=== PATIENT | male | born 1940 | race Caucasian/White ===

== ENCOUNTER 2020-12-19 15:25 | Emergency (ER) | payer MEDICARE, OTHER ==
[2020-12-19] MEDS ORDERED: diphenhydrAMINE 50 MG Cap PO ONE (15:28)
[2020-12-19] MEDS ORDERED: Acetaminophen 325 MG Tab PO ONE ×2 (15:29→16:22)
[2020-12-19] MEDS ORDERED: Sodium Chloride 0.9% 10 ML Syringe FLUSH PRN (15:41)
[2020-12-19] MEDS ORDERED: Ondansetron 4 MG/2 ML SDV IVPUSH ONE (15:41)
[2020-12-19] MEDS ORDERED: diphenhydrAMINE 50 MG/ML SDV IVPUSH ONE (15:41)
--- NOTE | 2020-12-19 15:44 | EDM.PDOC ---
ED HPI GENERAL MEDICAL PROBLEM - General Stated Complaint: VOMITTING,CHILLS Time Seen by Provider: 12/19/20 15:30 Source of Information: Reports: Patient History Limitations: Reports: No Limitations - History of Present Illness INITIAL COMMENTS - FREE TEXT/NARRATIVE: This patient presents to the emergency department for evaluation of chills and vomiting. He was treated as an outpatient in this facility earlier today, and given a dose of Octagam. 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 He did fine with the transfusion and there were no red flags of intolerance. He was discharged approximately 12 noon. Shortly after that he started having shaking chills, nausea, and has had 1 episode of vomiting. He did return fairly quickly with these concerns. ED ROS GENERAL - Review of Systems Review Of Systems: Comprehensive ROS is negative, except as noted in HPI. ED EXAM, GENERAL - Physical Exam Exam: See Below Exam Limited By: No Limitations General Appearance: Alert, No Apparent Distress Eye Exam: Bilateral Eye: Normal Inspection, PERRL Ears: Normal External Exam Nose: Normal Inspection Throat/Mouth: Normal Inspection Head: Atraumatic, Normocephalic Respiratory/Chest: No Respiratory Distress, Lungs Clear, Normal Breath Sounds, No Accessory Muscle Use Cardiovascular: Regular Rate, Rhythm GI/Abdominal: Soft, Non-Tender, No Distention Neurological: Alert, Oriented Psychiatric: Normal Affect Skin Exam: Warm, Dry Course - Orders/Labs/Meds Orders: Active Orders 24 hr Category Date Time Status Sodium Chloride 0.9% [Normal Saline] 1,000 ml Med 12/19/20 15:45 Active IV ASDIRECTED Sodium Chloride 0.9% [Saline Flush] Med 12/19/20 15:41 Active 10 ml FLUSH ASDIRECTED PRN Saline Lock Insert [OM.PC] Stat Oth 12/19/20 15:41 Ordered Medication Orders Sodium Chloride (Normal Saline) 1,000 mls @ 1,000 mls/hr IV ASDIRECTED DELFINO Last Admin: 12/19/20 15:43 Dose: 1,000 mls/hr Documented by: KVNG Sodium Chloride (Sodium Chloride 0.9% 10 Ml Syringe) 10 ml FLUSH ASDIRECTED PRN PRN Reason: Keep Vein Open Last Admin: 12/19/20 16:24 Dose: 10 ml Documented by: KVNG Meds: Medications Generic Name Dose Route Start Last Admin Trade Name Freq PRN Reason Stop Dose Admin Sodium Chloride 1,000 mls @ 1,000 mls/hr 12/19/20 15:45 12/19/20 15:43 Normal Saline IV 1,000 mls/hr ASDIRECTED DELFINO Administration Sodium Chloride 10 ml 12/19/20 15:41 12/19/20 16:24 Sodium Chloride 0.9% 10 Ml Syringe FLUSH 10 ml ASDIRECTED PRN Administration Keep Vein Open Discontinued Medications Generic Name Dose Route Start Last Admin Trade Name Homero PRN Reason Stop Dose Admin Acetaminophen 650 mg 12/19/20 15:29 12/19/20 16:42 Acetaminophen 325 Mg Tab PO 12/19/20 15:30 Not Given NOW ONE Acetaminophen Confirm 12/19/20 15:53 12/19/20 16:24 Acetaminophen 325 Mg Tab Administered 12/19/20 15:54 Not Given Dose 650 mg .ROUTE .STK-MED ONE Acetaminophen 650 mg 12/19/20 16:22 12/19/20 16:23 Acetaminophen 325 Mg Tab PO 12/19/20 16:23 650 mg NOW ONE Administration Diphenhydramine HCl 50 mg 12/19/20 15:28 12/19/20 16:30 Diphenhydramine 50 Mg Cap PO 12/19/20 15:29 Not Given ONETIME ONE Diphenhydramine HCl 50 mg 12/19/20 15:41 12/19/20 15:43 Diphenhydramine 50 Mg/Ml Sdv IVPUSH 12/19/20 15:42 50 mg ONETIME ONE Administration Diphenhydramine HCl Confirm 12/19/20 15:52 12/19/20 16:14 Diphenhydramine 50 Mg/Ml Sdv Administered 12/19/20 15:53 Not Given Dose 50 mg .ROUTE .STK-MED ONE Diphenhydramine HCl 50 mg 12/19/20 16:21 12/19/20 16:41 Diphenhydramine 50 Mg/Ml Sdv IVPUSH 12/19/20 16:22 Not Given ONETIME ONE Ondansetron HCl 4 mg 12/19/20 15:41 12/19/20 15:43 Ondansetron 4 Mg/2 Ml Sdv IVPUSH 12/19/20 15:42 4 mg ONETIME ONE Administration Ondansetron HCl Confirm 12/19/20 15:52 12/19/20 16:25 Ondansetron 4 Mg/2 Ml Sdv Administered 12/19/20 15:53 Not Given Dose 4 mg .ROUTE .STK-MED ONE Ondansetron HCl 4 mg 12/19/20 16:15 12/19/20 16:29 Ondansetron 4 Mg/2 Ml Sdv IVPUSH 12/19/20 16:16 Not Given ONETIME ONE Departure - Departure Time of Disposition: 17:20 Disposition: Home, Self-Care 01 Condition: Good Clinical Impression: Drug reaction - Discharge Information *PRESCRIPTION DRUG MONITORING PROGRAM REVIEWED*: Not Applicable *COPY OF PRESCRIPTION DRUG MONITORING REPORT IN PATIENT KENJI: Not Applicable Referrals: PCP,None [Primary Care Provider] - Additional Instructions: Follow up with Dr. Cho's office. Return to the ED if you have further problems. - My Orders Last 24 Hours: My Active Orders 12/19/20 15:41 Sodium Chloride 0.9% [Saline Flush] 10 ml FLUSH ASDIRECTED PRN Saline Lock Insert [OM.PC] Stat 12/19/20 15:45 Sodium Chloride 0.9% [Normal Saline] 1,000 ml IV ASDIRECTED - Assessment/Plan Last 24 Hours: My Active Orders 12/19/20 15:41 Sodium Chloride 0.9% [Saline Flush] 10 ml FLUSH ASDIRECTED PRN Saline Lock Insert [OM.PC] Stat 12/19/20 15:45 Sodium Chloride 0.9% [Normal Saline] 1,000 ml IV ASDIRECTED
[2020-12-19] MEDS ORDERED: Sodium Chloride 0.9% 1,000 ML IV SCH (15:45)
[2020-12-19] MEDS ORDERED: diphenhydrAMINE 50 MG/ML SDV ONE (15:52)
[2020-12-19] MEDS ORDERED: Ondansetron 4 MG/2 ML SDV ONE (15:52)
[2020-12-19] MEDS ORDERED: Acetaminophen 325 MG Tab ONE (15:53)
[2020-12-19] MEDS: Ondansetron 4 MG/2 ML SDV IVPUSH ONE ×2 (16:22→16:29)
[2020-12-19] MEDS: diphenhydrAMINE 50 MG/ML SDV IVPUSH ONE ×2 (16:22→16:41)
== END 2020-12-19 17:10 | disposition home or self-care (01) ==
LOC: LB.ED 15:25
DX: R11.2 Nausea with vomiting, unspecified (principal); T50.995A Adverse effect of other drugs, medicaments and biological substances, initial encounter
CPT/HCPCS: 96374; 96375; 99282-25; A9270-GY; J1200; J2405; J7030

== ENCOUNTER 2021-04-24 07:31 | Emergency (ER) | payer MEDICARE, OTHER | END 2021-04-24 11:35 | disposition home or self-care (01) | LOC: LB.ED 07:31 | DX: B34.9 Viral infection, unspecified (principal); Z20.822 Contact with and (suspected) exposure to COVID-19; Z88.1 Allergy status to other antibiotic agents; Z79.899 Other long term (current) drug therapy | CPT/HCPCS: 36415; 71046; 80048; 84484; 85025; 87804; 87804-59; 99284-25; U0002 ==

== ENCOUNTER 2022-12-16 12:36 | Emergency (ER) | payer MEDICARE, BC ==
[2022-12-16 15:06] LABS: INFLUENZA A NAA NEGATIVE (NEGATIVE); INFLUENZA B NAA NEGATIVE (NEGATIVE); RESPIRATORY SYNCYTIAL VIR NAA NEGATIVE (NEGATIVE)
[2022-12-16 15:09] LABS: CORONAVIRUS COVID-19 NAA NEGATIVE (NEGATIVE)
[2022-12-16 15:32] LABS: HEMATOCRIT 42.4 % (40.0-54.0); MEAN CORPUSCULAR HEMOGLOBIN 30.1 pg (27.0-32.0); MEAN PLATELET VOLUME 9.1 fL (6.0-10.0); RED BLOOD CELL COUNT 4.65 M/uL (4.50-6.50); RED CELL DISTRIBUTION WIDTH 13.6 % (11.0-16.0); WHITE BLOOD CELL COUNT,WBC 7.2 K/uL (4.0-11.0)
[2022-12-16 15:34] LABS: APPEARANCE,URINE CLEAR (CLEAR); BILIRUBIN,URINE NEGATIVE (NEGATIVE); COLOR,URINE YELLOW; GLUCOSE,URINE NEGATIVE (NEGATIVE); KETONES,URINE NEGATIVE (NEGATIVE); LEUKOCYTE ESTERASE,URINE NEGATIVE (NEGATIVE); NITRITE,URINE NEGATIVE (NEGATIVE); OCCULT BLOOD,URINE NEGATIVE (NEGATIVE); PH,URINE 5.5 (5.0-8.0); PROTEIN,URINE NEGATIVE (NEGATIVE); UROBILINOGEN,URINE 0.2 E.U./dL (0.2-1.0)
[2022-12-16 15:46] LABS: ANION GAP 13.9 mmol/L (5.0-15.0); BLOOD UREA NITROGEN,BUN 21 mg/dL (8-26); BUN/CREATININE RATIO 16.3 (6-25); CALCIUM 8.9 mg/dL (8.5-10.1); CARBON DIOXIDE,CO2 25.3 mmol/L (21.0-32.0); CHLORIDE,CL 102 mmol/L (98-107); CREATININE 1.29 mg/dL (0.70-1.30); ESTIMATED GFR 55 mL/min (>60); GLUCOSE RANDOM 109 mg/dL (74-100); POTASSIUM,K 4.2 mmol/L (3.5-5.1); SODIUM,NA 137 mmol/L (136-145)
[2022-12-16] MEDS ORDERED: Amoxicillin/Clavulanate K 875-125 MG Tab ONE (16:00)
[2022-12-16 20:10] VITALS: BP 122/68; PULSE 90
== END 2022-12-16 16:20 | disposition home or self-care (01) ==
LOC: LB.ED 12:36
DX: K08.89 Other specified disorders of teeth and supporting structures (principal); I10 Essential (primary) hypertension; Z88.8 Allergy status to other drugs, medicaments and biological substances; Z88.2 Allergy status to sulfonamides; Z79.899 Other long term (current) drug therapy; Z20.822 Contact with and (suspected) exposure to COVID-19
CPT/HCPCS: 0241U; 36415; 80048; 81003; 85027; 99283; A9270-GY

== ENCOUNTER 2022-12-18 09:08 | Emergency (ER) | payer MEDICARE, BC ==
[2022-12-18] MEDS ORDERED: Sodium Chloride 0.9% 10 ML Syringe FLUSH PRN (09:37)
[2022-12-18] MEDS ORDERED: Sodium Chloride 0.9% 1,000 ML IV SCH (09:45)
[2022-12-18 10:07] LABS: BASOPHILS ABSOLUTE AUTO 0.04 K/uL (0.02-0.10); BASOPHILS PERCENT AUTO 0.5 % (0.0-0.5); EOSINOPHILS ABSOLUTE AUTO 0.01 K/uL (0.04-0.40); EOSINOPHILS PERCENT AUTO 0.1 % (1.0-5.0); HEMATOCRIT 39.2 % (40.0-54.0); HEMOGLOBIN 13.2 g/dL (13.0-18.0); LYMPHOCYTES ABSOLUTE AUTO 1.13 K/uL (1.50-4.00); LYMPHOCYTES PERCENT AUTO 13.6 % (20.0-40.0); MEAN CORPUSCULAR HEMOGLOBIN 30.3 pg (27.0-32.0); MEAN CORPUSCULAR HGB CONC 33.7 g/dL (31.0-35.0); MEAN CORPUSCULAR VOLUME 90 fL (76-96); MEAN PLATELET VOLUME 9.9 fL (6.0-10.0); MONOCYTES ABSOLUTE AUTO 0.59 K/uL (0.20-0.80); MONOCYTES PERCENT AUTO 7.1 % (3.0-10.0); NEUTROPHILS ABSOLUTE AUTO 6.56 K/uL (2.00-7.50); NEUTROPHILS PERCENT AUTO 78.7 % (45.0-70.0); PLATELET COUNT,PLT 176 K/uL (150-400); RED BLOOD CELL COUNT 4.35 M/uL (4.50-6.50); RED CELL DISTRIBUTION WIDTH 13.2 % (11.0-16.0); WHITE BLOOD CELL COUNT,WBC 8.3 K/uL (4.0-11.0)
[2022-12-18 10:19] LABS: A/G RATIO 1.1 (0.8-2.0); ALBUMIN 3.6 g/dL (3.4-5.0); ANION GAP 15.7 mmol/L (5.0-15.0); CALCIUM 8.5 mg/dL (8.5-10.1); CARBON DIOXIDE,CO2 22.6 mmol/L (21.0-32.0); CREATININE 1.54 mg/dL (0.70-1.30); EST CRCL DRUG DOSING (CG) 37.53 mL/min; POTASSIUM,K 4.3 mmol/L (3.5-5.1); PROTEIN TOTAL,TP 6.9 g/dL (6.4-8.2)
[2022-12-18 12:46] LABS: APPEARANCE,URINE CLEAR (CLEAR); BILIRUBIN,URINE NEGATIVE (NEGATIVE); COLOR,URINE YELLOW; GLUCOSE,URINE NEGATIVE (NEGATIVE); KETONES,URINE TRACE mg/dL (NEGATIVE); LEUKOCYTE ESTERASE,URINE NEGATIVE (NEGATIVE); NITRITE,URINE NEGATIVE (NEGATIVE); OCCULT BLOOD,URINE NEGATIVE (NEGATIVE); PH,URINE 6.5 (5.0-8.0); PROTEIN,URINE NEGATIVE (NEGATIVE); UROBILINOGEN,URINE 0.2 E.U./dL (0.2-1.0)
[2022-12-18] MEDS ORDERED: Prochlorperazine 5 MG in Sodium Chloride 0.9% 50 ML IV ONE (13:38)
[2022-12-18] MEDS ORDERED: diphenhydrAMINE 50 MG/ML SDV IVPUSH ONE (13:38)
[2022-12-18] MEDS ORDERED: diphenhydrAMINE 50 MG/ML SDV ONE (13:43)
[2022-12-18] MEDS ORDERED: Prochlorperazine 10 MG/2 ML SDV ONE (13:55)
[2022-12-18] MEDS ORDERED: Prochlorperazine 10 MG/2 ML SDV IM ONE (13:56)
[2022-12-18] MEDS ORDERED: Ketorolac 30 MG/ML SDV ONE (15:42)
[2022-12-18] MEDS ORDERED: Azithromycin 500 MG Tab PO ONE (16:00)
== END 2022-12-18 17:32 | disposition home or self-care (01) ==
LOC: LB.ED 09:08
DX: J18.9 Pneumonia, unspecified organism (principal); I71.00 Dissection of unspecified site of aorta; I10 Essential (primary) hypertension; J45.909 Unspecified asthma, uncomplicated; Z95.0 Presence of cardiac pacemaker; Z88.1 Allergy status to other antibiotic agents; Z88.8 Allergy status to other drugs, medicaments and biological substances
CPT/HCPCS: 36415; 71045; 71250; 74176; 80053; 81003; 83735; 85025; 96361; 96374; 99285-25; A9270-GY; J1200; J7030

== ENCOUNTER 2022-12-19 11:05 | Inpatient (IN) | payer MEDICARE, BC ==
[2022-12-19] MEDS ORDERED: Sodium Chloride 0.9% 10 ML Syringe FLUSH PRN (12:20)
[2022-12-19] MEDS ORDERED: cefTRIAXone 1 GM in Sodium Chloride 0.9% 50 ML IV ONE (12:22)
[2022-12-19] MEDS ORDERED: Sodium Chloride 0.9% 1,000 ML IV SCH (12:30)
[2022-12-19 12:46] LABS: BASOPHILS ABSOLUTE AUTO 0.03 K/uL (0.02-0.10); BASOPHILS PERCENT AUTO 0.4 % (0.0-0.5); EOSINOPHILS ABSOLUTE AUTO 0.06 K/uL (0.04-0.40); EOSINOPHILS PERCENT AUTO 0.7 % (1.0-5.0); HEMATOCRIT 38.7 % (40.0-54.0); LYMPHOCYTES ABSOLUTE AUTO 1.16 K/uL (1.50-4.00); LYMPHOCYTES PERCENT AUTO 13.8 % (20.0-40.0); MEAN CORPUSCULAR HEMOGLOBIN 30.4 pg (27.0-32.0); MEAN CORPUSCULAR HGB CONC 33.6 g/dL (31.0-35.0); MEAN CORPUSCULAR VOLUME 90 fL (76-96); MEAN PLATELET VOLUME 10.1 fL (6.0-10.0); MONOCYTES ABSOLUTE AUTO 0.71 K/uL (0.20-0.80); MONOCYTES PERCENT AUTO 8.5 % (3.0-10.0); NEUTROPHILS ABSOLUTE AUTO 6.42 K/uL (2.00-7.50); NEUTROPHILS PERCENT AUTO 76.6 % (45.0-70.0); PLATELET COUNT,PLT 161 K/uL (150-400); RED BLOOD CELL COUNT 4.28 M/uL (4.50-6.50); RED CELL DISTRIBUTION WIDTH 13.3 % (11.0-16.0); WHITE BLOOD CELL COUNT,WBC 8.4 K/uL (4.0-11.0)
[2022-12-19] MEDS ORDERED: cefTRIAXone 1 GM Vial ONE ×2 (12:46→12:53)
[2022-12-19 13:17] LABS: ALBUMIN 3.4 g/dL (3.4-5.0); BILIRUBIN TOTAL 0.6 mg/dL (0.0-1.0); BUN/CREATININE RATIO 13.7 (6-25); CALCIUM 8.5 mg/dL (8.5-10.1); CREATININE 1.46 mg/dL (0.70-1.30); EST CRCL DRUG DOSING (CG) 39.58 mL/min; PHOSPHORUS 4.1 mg/dL (2.5-4.9); PROTEIN TOTAL,TP 6.7 g/dL (6.4-8.2); TROPONIN I HIGH SENSITIVITY 32.8 pg/ml (<=60.4)
[2022-12-19] MEDS: Sodium Chloride 0.9% 1,000 ML IV SCH (16:05)
[2022-12-19 16:11] LABS: APPEARANCE,URINE CLEAR (CLEAR); BILIRUBIN,URINE NEGATIVE (NEGATIVE); COLOR,URINE YELLOW; GLUCOSE,URINE NEGATIVE (NEGATIVE); KETONES,URINE NEGATIVE (NEGATIVE); LEUKOCYTE ESTERASE,URINE NEGATIVE (NEGATIVE); NITRITE,URINE NEGATIVE (NEGATIVE); OCCULT BLOOD,URINE NEGATIVE (NEGATIVE); PROTEIN,URINE NEGATIVE (NEGATIVE); UROBILINOGEN,URINE 0.2 E.U./dL (0.2-1.0)
[2022-12-19] MEDS ORDERED: Acetaminophen 325 MG Tab ONE (20:40)
[2022-12-19] MEDS: Acetaminophen 325 MG Tab PO PRN (20:45)
[2022-12-20] MEDS: Sodium Chloride 0.9% 1,000 ML IV SCH ×3 (00:52→17:30)
[2022-12-20] MEDS: Acetaminophen 325 MG Tab PO PRN (05:08)
[2022-12-20] MEDS ORDERED: Hydrochlorothiazide/Triamterene 25-37.5 MG Cap PO SCH (09:15)
[2022-12-20] MEDS ORDERED: cefTRIAXone 1 GM Vial IVPUSH SCH (09:30)
[2022-12-20 09:35] LABS: HEMATOCRIT 41.2 % (40.0-54.0); HEMOGLOBIN 13.5 g/dL (13.0-18.0); MEAN CORPUSCULAR HGB CONC 32.8 g/dL (31.0-35.0); MEAN PLATELET VOLUME 9.9 fL (6.0-10.0); RED BLOOD CELL COUNT 4.5 M/uL (4.50-6.50); RED CELL DISTRIBUTION WIDTH 13.4 % (11.0-16.0); WHITE BLOOD CELL COUNT,WBC 9.8 K/uL (4.0-11.0)
[2022-12-20] MEDS: cefTRIAXone 1 GM in Sodium Chloride 0.9% 50 ML IV SCH (10:28)
[2022-12-20] MEDS: Tamsulosin 0.4 MG Cap.ER PO SCH (10:28)
[2022-12-20] MEDS: amLODIPine 5 MG Tab PO SCH (10:32)
[2022-12-20 11:24] LABS: ANION GAP 15.6 mmol/L (5.0-15.0); BUN/CREATININE RATIO 12.6 (6-25); CALCIUM 8.6 mg/dL (8.5-10.1); CARBON DIOXIDE,CO2 22.4 mmol/L (21.0-32.0); CREATININE 1.43 mg/dL (0.70-1.30); EST CRCL DRUG DOSING (CG) 40.41 mL/min
[2022-12-20] MEDS ORDERED: Azithromycin 500 MG in Sodium Chloride 0.9% 250 ML IV SCH (18:00)
[2022-12-20] MEDS ORDERED: Lactobacillus Acidophilus/Lactobacillus Sporogenes (Probiotic) Tab PO SCH (18:00)
[2022-12-20] MEDS: Lactobacillus Acidophilus/Lactobacillus Sporogenes (Probiotic) Tab PO SCH (20:07)
[2022-12-20] MEDS: Azithromycin 500 MG in Sodium Chloride 0.9% 250 ML IV SCH (20:07)
[2022-12-21] MEDS: Sodium Chloride 0.9% 1,000 ML IV SCH ×2 (01:37→08:02)
[2022-12-21] MEDS: amLODIPine 5 MG Tab PO SCH (07:49)
[2022-12-21] MEDS: Tamsulosin 0.4 MG Cap.ER PO SCH (07:49)
[2022-12-21] MEDS: Finasteride 5 MG Tab PO SCH (07:49)
[2022-12-21 09:04] LABS: ANION GAP 13.8 mmol/L (5.0-15.0); BUN/CREATININE RATIO 12.5 (6-25); CALCIUM 8.1 mg/dL (8.5-10.1); CREATININE 1.04 mg/dL (0.70-1.30); EST CRCL DRUG DOSING (CG) 55.57 mL/min; POTASSIUM,K 3.8 mmol/L (3.5-5.1)
[2022-12-21] MEDS: cefTRIAXone 1 GM in Sodium Chloride 0.9% 50 ML IV SCH (10:33)
[2022-12-21 14:19] LABS: INFLUENZA A NAA NEGATIVE (NEGATIVE); INFLUENZA B NAA NEGATIVE (NEGATIVE); RESPIRATORY SYNCYTIAL VIR NAA NEGATIVE (NEGATIVE)
[2022-12-21 14:21] LABS: CORONAVIRUS COVID-19 NAA NEGATIVE (NEGATIVE)
[2022-12-21] MEDS: Polyethylene Glycol 3350 Powder 17 GM Packet PO SCH ×2 (14:35→19:44)
[2022-12-21] MEDS: Bisacodyl 5 MG Tab PO SCH (14:35)
[2022-12-21] MEDS: Docusate Sodium 100 MG Cap PO SCH (19:44)
[2022-12-21] MEDS: Azithromycin 500 MG in Sodium Chloride 0.9% 250 ML IV SCH (19:44)
[2022-12-21] MEDS: Lactobacillus Acidophilus/Lactobacillus Sporogenes (Probiotic) Tab PO SCH (19:44)
[2022-12-22 06:51] LABS: HEMATOCRIT 34.4 % (40.0-54.0); HEMOGLOBIN 11.6 g/dL (13.0-18.0); MEAN CORPUSCULAR HEMOGLOBIN 30.2 pg (27.0-32.0); MEAN CORPUSCULAR HGB CONC 33.7 g/dL (31.0-35.0); RED BLOOD CELL COUNT 3.84 M/uL (4.50-6.50); RED CELL DISTRIBUTION WIDTH 12.6 % (11.0-16.0); WHITE BLOOD CELL COUNT,WBC 4.9 K/uL (4.0-11.0)
[2022-12-22 07:04] LABS: ANION GAP 13.7 mmol/L (5.0-15.0); BUN/CREATININE RATIO 12.6 (6-25); CALCIUM 8.1 mg/dL (8.5-10.1); CARBON DIOXIDE,CO2 23.4 mmol/L (21.0-32.0); CREATININE 0.95 mg/dL (0.70-1.30); EST CRCL DRUG DOSING (CG) 60.83 mL/min; POTASSIUM,K 4.1 mmol/L (3.5-5.1)
[2022-12-22 07:20] LABS: LACTIC ACID 0.9 mmol/L (0.4-2.0)
[2022-12-22] MEDS: amLODIPine 5 MG Tab PO SCH (07:35)
[2022-12-22] MEDS: Finasteride 5 MG Tab PO SCH (07:35)
[2022-12-22] MEDS: Tamsulosin 0.4 MG Cap.ER PO SCH (07:35)
[2022-12-22] MEDS: Docusate Sodium 100 MG Cap PO SCH ×2 (07:35→20:47)
[2022-12-22] MEDS: Bisacodyl 5 MG Tab PO SCH (07:35)
[2022-12-22] MEDS: Polyethylene Glycol 3350 Powder 17 GM Packet PO SCH ×2 (07:35→20:47)
[2022-12-22] MEDS: cefTRIAXone 1 GM in Sodium Chloride 0.9% 50 ML IV SCH (11:03)
[2022-12-22 11:47] LABS: APPEARANCE,URINE CLEAR (CLEAR); BILIRUBIN,URINE NEGATIVE (NEGATIVE); COLOR,URINE YELLOW; GLUCOSE,URINE NEGATIVE (NEGATIVE); KETONES,URINE NEGATIVE (NEGATIVE); LEUKOCYTE ESTERASE,URINE NEGATIVE (NEGATIVE); NITRITE,URINE NEGATIVE (NEGATIVE); OCCULT BLOOD,URINE NEGATIVE (NEGATIVE); PROTEIN,URINE NEGATIVE (NEGATIVE); UROBILINOGEN,URINE 0.2 E.U./dL (0.2-1.0)
[2022-12-22] MEDS: Acetaminophen 325 MG Tab PO PRN (16:04)
[2022-12-22] MEDS: Lactobacillus Acidophilus/Lactobacillus Sporogenes (Probiotic) Tab PO SCH (20:47)
[2022-12-22] MEDS: Azithromycin 500 MG in Sodium Chloride 0.9% 250 ML IV SCH (20:47)
[2022-12-23 07:59] LABS: HEMATOCRIT 35.4 % (40.0-54.0); MEAN CORPUSCULAR HEMOGLOBIN 30.1 pg (27.0-32.0); MEAN CORPUSCULAR HGB CONC 33.9 g/dL (31.0-35.0); MEAN PLATELET VOLUME 9.8 fL (6.0-10.0); RED BLOOD CELL COUNT 3.99 M/uL (4.50-6.50); RED CELL DISTRIBUTION WIDTH 12.7 % (11.0-16.0); WHITE BLOOD CELL COUNT,WBC 4.8 K/uL (4.0-11.0)
[2022-12-23 08:11] LABS: ANION GAP 14.4 mmol/L (5.0-15.0); BUN/CREATININE RATIO 15.1 (6-25); CALCIUM 8.4 mg/dL (8.5-10.1); CARBON DIOXIDE,CO2 22.5 mmol/L (21.0-32.0); CREATININE 0.93 mg/dL (0.70-1.30); EST CRCL DRUG DOSING (CG) 62.14 mL/min; POTASSIUM,K 3.9 mmol/L (3.5-5.1)
[2022-12-23] MEDS: Bisacodyl 5 MG Tab PO SCH (08:22)
[2022-12-23] MEDS: Tamsulosin 0.4 MG Cap.ER PO SCH (08:23)
[2022-12-23] MEDS: Finasteride 5 MG Tab PO SCH (08:23)
[2022-12-23] MEDS: Docusate Sodium 100 MG Cap PO SCH (08:23)
[2022-12-23] MEDS: Polyethylene Glycol 3350 Powder 17 GM Packet PO SCH (08:23)
[2022-12-23] MEDS: amLODIPine 5 MG Tab PO SCH (08:23)
[2022-12-23] MEDS ORDERED: Ondansetron 4 MG Tab.DIS PO PRN (10:30)
[2022-12-23] MEDS ORDERED: Amoxicillin/Clavulanate K 875-125 MG Tab PO SCH (12:00)
[2022-12-23] MEDS ORDERED: Azithromycin 250 MG Tab PO SCH (20:00)
== END 2022-12-23 16:10 | disposition home or self-care (01) | DRG 682 ==
LOC: LB.ED 11:05 → LB.MS 15:49 → OBSVTOIN 12-21 14:28
PROVIDERS: ADMIT Surgery; ATTEND Surgery
DX: N17.9 Acute kidney failure, unspecified (principal); J18.9 Pneumonia, unspecified organism; E86.0 Dehydration; Z20.822 Contact with and (suspected) exposure to COVID-19; I10 Essential (primary) hypertension; H91.90 Unspecified hearing loss, unspecified ear; M19.90 Unspecified osteoarthritis, unspecified site; F41.9 Anxiety disorder, unspecified; M10.9 Gout, unspecified; J45.909 Unspecified asthma, uncomplicated; E66.9 Obesity, unspecified; Z95.0 Presence of cardiac pacemaker; Z98.890 Other specified postprocedural states; Z87.891 Personal history of nicotine dependence; Z88.2 Allergy status to sulfonamides; Z88.1 Allergy status to other antibiotic agents; Z79.899 Other long term (current) drug therapy; Z68.31 Body mass index [BMI] 31.0-31.9, adult; Z85.46 Personal history of malignant neoplasm of prostate
CPT/HCPCS: 0241U; 36415; 74176; 80048; 80053; 81003; 83605; 83735; 84100; 84484; 85025; 85027; 86140; 87040; 93005; 93010; 96361; 96365; 96367; 96376; 99222; 99232; 99239; 99285-25; A9270-GY; G0378; J0456; J0696; J3490; J7030; J7050; Q0162

== ENCOUNTER 2023-04-20 12:33 | Emergency (ER) | payer MEDICARE, BC ==
[2023-04-20] MEDS ORDERED: Ketorolac 30 MG/ML SDV ONE (13:43)
[2023-04-20] MEDS ORDERED: Ketorolac 30 MG/ML SDV IM ONE (13:44)
== END 2023-04-20 13:54 | disposition home or self-care (01) ==
LOC: LB.ED 12:33
DX: S49.92XA Unspecified injury of left shoulder and upper arm, initial encounter (principal); I10 Essential (primary) hypertension; J45.909 Unspecified asthma, uncomplicated; Z95.0 Presence of cardiac pacemaker; Z79.899 Other long term (current) drug therapy; Z88.2 Allergy status to sulfonamides; W01.0XXA Fall on same level from slipping, tripping and stumbling without subsequent striking against object, initial encounter
CPT/HCPCS: 70450; 73030-LT; 96372; 99284; J1885

== ENCOUNTER 2024-09-23 15:12 | Emergency (ER) | payer MEDICARE, BC ==
[2024-09-23] MEDS: Ketorolac 15 MG/ML SDV IM ONE (16:05)
[2024-09-23] MEDS: Apixaban 5 MG Tab PO ONE (17:22)
== END 2024-09-23 17:52 | disposition home or self-care (01) ==
LOC: LB.ED 15:12
DX: I82.4Y2 Acute embolism and thrombosis of unspecified deep veins of left proximal lower extremity (principal); I10 Essential (primary) hypertension; E66.9 Obesity, unspecified; Z79.899 Other long term (current) drug therapy; Z88.2 Allergy status to sulfonamides; Z88.1 Allergy status to other antibiotic agents
CPT/HCPCS: 36415; 85379; 96372; 99283; A9270; J1885; 99284

== ENCOUNTER 2024-09-29 12:41 | Emergency (ER) | payer MEDICARE, BC ==
[2024-09-29 13:20] LABS: BASOPHILS ABSOLUTE AUTO 0.01 K/uL (0.02-0.10); BASOPHILS PERCENT AUTO 0.1 % (0.0-0.5); EOSINOPHILS ABSOLUTE AUTO 0.11 K/uL (0.04-0.40); EOSINOPHILS PERCENT AUTO 1.5 % (1.0-5.0); HEMATOCRIT 35.2 % (40.0-54.0); HEMOGLOBIN 11.9 g/dL (13.0-18.0); LYMPHOCYTES ABSOLUTE AUTO 1.51 K/uL (1.50-4.00); LYMPHOCYTES PERCENT AUTO 20.9 % (20.0-40.0); MEAN CORPUSCULAR HEMOGLOBIN 29.9 pg (27.0-32.0); MEAN CORPUSCULAR HGB CONC 33.8 g/dL (31.0-35.0); MEAN CORPUSCULAR VOLUME 88 fL (76-96); MONOCYTES ABSOLUTE AUTO 0.66 K/uL (0.20-0.80); MONOCYTES PERCENT AUTO 9.1 % (3.0-10.0); NEUTROPHILS ABSOLUTE AUTO 4.93 K/uL (2.00-7.50); NEUTROPHILS PERCENT AUTO 68.4 % (45.0-70.0); PLATELET COUNT,PLT 195 K/uL (150-400); RED BLOOD CELL COUNT 3.98 M/uL (4.50-6.50); RED CELL DISTRIBUTION WIDTH 13.2 % (11.0-16.0); WHITE BLOOD CELL COUNT,WBC 7.2 K/uL (4.0-11.0)
[2024-09-29 13:24] LABS: APPEARANCE,URINE CLEAR (CLEAR); BILIRUBIN,URINE NEGATIVE (NEGATIVE); COLOR,URINE YELLOW; GLUCOSE,URINE NEGATIVE (NEGATIVE); KETONES,URINE NEGATIVE (NEGATIVE); LEUKOCYTE ESTERASE,URINE NEGATIVE (NEGATIVE); NITRITE,URINE NEGATIVE (NEGATIVE); OCCULT BLOOD,URINE NEGATIVE (NEGATIVE); PH,URINE 7.5 (5.0-8.0); PROTEIN,URINE NEGATIVE (NEGATIVE); UROBILINOGEN,URINE 0.2 E.U./dL (0.2-1.0)
[2024-09-29] MEDS: Sodium Chloride 0.9% 1,000 ML IV ONE (13:33)
[2024-09-29 13:34] LABS: EPITHELIAL CELLS,URINE OCCASIONAL /HPF; RBC,URINE 0-5 /HPF; WBC,URINE 0-5 /HPF
[2024-09-29] MEDS ORDERED: Sodium Chloride 0.9% 10 ML Syringe FLUSH PRN (13:42)
[2024-09-29 13:50] LABS: MAGNESIUM 2.1 mg/dL (1.8-2.4); PRO B-TYPE NATRIUR PEPT,BNPPRO 396 pg/mL (0-450)
[2024-09-29 13:52] LABS: A/G RATIO 1.1 (0.8-2.0); ALBUMIN 3.3 g/dL (3.4-5.0); ANION GAP 17.4 mmol/L (5.0-15.0); BILIRUBIN TOTAL 0.6 mg/dL (0.0-1.0); BUN/CREATININE RATIO 12.8 (6-25); CALCIUM 8.5 mg/dL (8.5-10.1); CARBON DIOXIDE,CO2 22.2 mmol/L (21.0-32.0); CREATININE 1.56 mg/dL (0.70-1.30); EST CRCL DRUG DOSING (CG) 35.75 mL/min; POTASSIUM,K 4.6 mmol/L (3.5-5.1); PROTEIN TOTAL,TP 6.3 g/dL (6.4-8.2); TSH ULTRASENSITIVE 6.167 uIU/mL (0.358-3.740)
[2024-09-29 13:55] LABS: C-REACTIVE PROTEIN < 5.0 mg/L (<5.0); INR 1.2 (1.0-3.5); TROPONIN I HIGH SENSITIVITY 94.8 pg/ml (<=60.4)
[2024-09-29 13:57] LABS: PROTHROMBIN TIME 12.1 sec (9.0-11.5)
[2024-09-29 14:55] VITALS: BP 115/72; PULSE 72
== END 2024-09-29 14:50 | disposition home or self-care (01) ==
LOC: LB.ED 12:41
DX: R53.83 Other fatigue (principal); I10 Essential (primary) hypertension; J45.909 Unspecified asthma, uncomplicated; Z95.0 Presence of cardiac pacemaker; Z88.8 Allergy status to other drugs, medicaments and biological substances; Z88.1 Allergy status to other antibiotic agents; Z79.51 Long term (current) use of inhaled steroids; Z79.899 Other long term (current) drug therapy
CPT/HCPCS: 36415; 71045; 80053; 81001; 83605; 83735; 83880; 84443; 84484; 85025; 85610; 85730; 86140; 93005; 93010; 96360; 99284; 99285-25; J7030

== ENCOUNTER 2025-01-09 12:49 | Inpatient (IN) | payer MEDICARE, BC ==
[2025-01-09 13:33] LABS: APPEARANCE,URINE CLEAR (CLEAR); GLUCOSE,URINE NEGATIVE (NEGATIVE); OCCULT BLOOD,URINE NEGATIVE (NEGATIVE)
[2025-01-09 13:33] LABS: BASOPHILS ABSOLUTE AUTO 0.02 K/uL (0.02-0.10); BASOPHILS PERCENT AUTO 0.3 % (0.0-0.5); EOSINOPHILS ABSOLUTE AUTO 0.15 K/uL (0.04-0.40); EOSINOPHILS PERCENT AUTO 2.2 % (1.0-5.0); LYMPHOCYTES ABSOLUTE AUTO 1.25 K/uL (1.50-4.00); LYMPHOCYTES PERCENT AUTO 18.6 % (20.0-40.0); MEAN PLATELET VOLUME 9.0 fL (6.0-10.0); MONOCYTES ABSOLUTE AUTO 0.58 K/uL (0.20-0.80); MONOCYTES PERCENT AUTO 8.6 % (3.0-10.0); NEUTROPHILS ABSOLUTE AUTO 4.73 K/uL (2.00-7.50); NEUTROPHILS PERCENT AUTO 70.3 % (45.0-70.0); PLATELET COUNT,PLT 152 K/uL (150-400); RED BLOOD CELL COUNT 4.17 M/uL (4.50-6.50); RED CELL DISTRIBUTION WIDTH 13.5 % (11.0-16.0); WHITE BLOOD CELL COUNT,WBC 6.7 K/uL (4.0-11.0)
[2025-01-09 13:49] LABS: A/G RATIO 1.1 (0.8-2.0); ALANINE AMINOTRANSFERASE,ALT 25.0 U/L (12-78); ASPARTATE AMNIOTRANSFERASE,AST 16.0 U/L (15-37); BILIRUBIN TOTAL 0.4 mg/dL (0.0-1.0); BLOOD UREA NITROGEN,BUN 22.0 mg/dL (8-26); CARBON DIOXIDE,CO2 24.8 mmol/L (21.0-32.0); CHLORIDE,CL 103.0 mmol/L (98-107); CREATININE 1.15 mg/dL (0.70-1.30); EST CRCL DRUG DOSING (CG) 48.49 mL/min; ESTIMATED GFR 62.0 mL/min (>60); GLUCOSE RANDOM 102.0 mg/dL (74-100); POTASSIUM,K 4.8 mmol/L (3.5-5.1); PROTEIN TOTAL,TP 6.4 g/dL (6.4-8.2); SODIUM,NA 138.0 mmol/L (136-145)
[2025-01-09] MEDS ORDERED: Sodium Chloride 0.9% 10 ML Syringe FLUSH PRN (15:56)
[2025-01-09] MEDS: Acetaminophen/HYDROcodone 325-5 MG Tab PO PRN (18:42)
[2025-01-09] MEDS: D5 1/2 NS w/ 20 mEq/L KCl 1,000 ML IV SCH (20:46)
[2025-01-09 20:48] LABS: LACTIC ACID 2.4 mmol/L (0.4-2.0)
[2025-01-10 09:05] LABS: BASOPHILS ABSOLUTE AUTO 0.02 K/uL (0.02-0.10); BASOPHILS PERCENT AUTO 0.2 % (0.0-0.5); EOSINOPHILS ABSOLUTE AUTO 0.01 K/uL (0.04-0.40); EOSINOPHILS PERCENT AUTO 0.1 % (1.0-5.0); LYMPHOCYTES ABSOLUTE AUTO 0.83 K/uL (1.50-4.00); LYMPHOCYTES PERCENT AUTO 9.0 % (20.0-40.0); MEAN PLATELET VOLUME 9.0 fL (6.0-10.0); MONOCYTES ABSOLUTE AUTO 0.41 K/uL (0.20-0.80); MONOCYTES PERCENT AUTO 4.5 % (3.0-10.0); NEUTROPHILS ABSOLUTE AUTO 7.91 K/uL (2.00-7.50); NEUTROPHILS PERCENT AUTO 86.2 % (45.0-70.0); PLATELET COUNT,PLT 155 K/uL (150-400); RED BLOOD CELL COUNT 4.01 M/uL (4.50-6.50); RED CELL DISTRIBUTION WIDTH 13.9 % (11.0-16.0); WHITE BLOOD CELL COUNT,WBC 9.2 K/uL (4.0-11.0)
[2025-01-10 09:26] LABS: A/G RATIO 0.9 (0.8-2.0); ALANINE AMINOTRANSFERASE,ALT 18.0 U/L (12-78); ASPARTATE AMNIOTRANSFERASE,AST 10.0 U/L (15-37); BILIRUBIN TOTAL 1.0 mg/dL (0.0-1.0); BLOOD UREA NITROGEN,BUN 16.0 mg/dL (8-26); CARBON DIOXIDE,CO2 21.9 mmol/L (21.0-32.0); CHLORIDE,CL 101.0 mmol/L (98-107); CREATININE 1.46 mg/dL (0.70-1.30); EST CRCL DRUG DOSING (CG) 38.19 mL/min; ESTIMATED GFR 47.0 mL/min (>60); GLUCOSE RANDOM 154.0 mg/dL (74-100); POTASSIUM,K 4.5 mmol/L (3.5-5.1); PROTEIN TOTAL,TP 5.9 g/dL (6.4-8.2); SODIUM,NA 134.0 mmol/L (136-145)
[2025-01-11 11:06] LABS: BASOPHILS ABSOLUTE AUTO 0.03 K/uL (0.02-0.10); BASOPHILS PERCENT AUTO 0.3 % (0.0-0.5); EOSINOPHILS ABSOLUTE AUTO 0.14 K/uL (0.04-0.40); EOSINOPHILS PERCENT AUTO 1.5 % (1.0-5.0); LYMPHOCYTES ABSOLUTE AUTO 0.88 K/uL (1.50-4.00); LYMPHOCYTES PERCENT AUTO 9.5 % (20.0-40.0); MEAN PLATELET VOLUME 9.2 fL (6.0-10.0); MONOCYTES ABSOLUTE AUTO 0.46 K/uL (0.20-0.80); MONOCYTES PERCENT AUTO 5.0 % (3.0-10.0); NEUTROPHILS ABSOLUTE AUTO 7.71 K/uL (2.00-7.50); NEUTROPHILS PERCENT AUTO 83.7 % (45.0-70.0); PLATELET COUNT,PLT 151 K/uL (150-400); RED BLOOD CELL COUNT 4.04 M/uL (4.50-6.50); RED CELL DISTRIBUTION WIDTH 13.9 % (11.0-16.0); WHITE BLOOD CELL COUNT,WBC 9.2 K/uL (4.0-11.0)
[2025-01-11 11:26] LABS: A/G RATIO 0.8 (0.8-2.0); ALANINE AMINOTRANSFERASE,ALT 19.0 U/L (12-78); ASPARTATE AMNIOTRANSFERASE,AST 10.0 U/L (15-37); BILIRUBIN TOTAL 0.8 mg/dL (0.0-1.0); BLOOD UREA NITROGEN,BUN 11.0 mg/dL (8-26); CARBON DIOXIDE,CO2 24.0 mmol/L (21.0-32.0); CHLORIDE,CL 104.0 mmol/L (98-107); CREATININE 1.22 mg/dL (0.70-1.30); EST CRCL DRUG DOSING (CG) 45.71 mL/min; ESTIMATED GFR 58.0 mL/min (>60); GLUCOSE RANDOM 133.0 mg/dL (74-100); POTASSIUM,K 4.5 mmol/L (3.5-5.1); PROTEIN TOTAL,TP 6.5 g/dL (6.4-8.2); SODIUM,NA 137.0 mmol/L (136-145)
[2025-01-12 08:08] LABS: BASOPHILS ABSOLUTE AUTO 0.02 K/uL (0.02-0.10); BASOPHILS PERCENT AUTO 0.2 % (0.0-0.5); EOSINOPHILS ABSOLUTE AUTO 0.29 K/uL (0.04-0.40); EOSINOPHILS PERCENT AUTO 3.0 % (1.0-5.0); LYMPHOCYTES ABSOLUTE AUTO 0.87 K/uL (1.50-4.00); LYMPHOCYTES PERCENT AUTO 9.1 % (20.0-40.0); MEAN PLATELET VOLUME 10.0 fL (6.0-10.0); MONOCYTES ABSOLUTE AUTO 0.57 K/uL (0.20-0.80); MONOCYTES PERCENT AUTO 6.0 % (3.0-10.0); NEUTROPHILS ABSOLUTE AUTO 7.78 K/uL (2.00-7.50); NEUTROPHILS PERCENT AUTO 81.7 % (45.0-70.0); PLATELET COUNT,PLT 169 K/uL (150-400); RED BLOOD CELL COUNT 4.33 M/uL (4.50-6.50); RED CELL DISTRIBUTION WIDTH 13.6 % (11.0-16.0); WHITE BLOOD CELL COUNT,WBC 9.5 K/uL (4.0-11.0)
[2025-01-12 08:31] LABS: ALANINE AMINOTRANSFERASE,ALT 14.0 U/L (12-78); ASPARTATE AMNIOTRANSFERASE,AST 10.0 U/L (15-37); BILIRUBIN TOTAL 0.7 mg/dL (0.0-1.0); BLOOD UREA NITROGEN,BUN 12.0 mg/dL (8-26); CARBON DIOXIDE,CO2 18.8 mmol/L (21.0-32.0); CHLORIDE,CL 104.0 mmol/L (98-107); CREATININE 1.2 mg/dL (0.70-1.30); EST CRCL DRUG DOSING (CG) 46.47 mL/min; ESTIMATED GFR 59.0 mL/min (>60); GLUCOSE RANDOM 138.0 mg/dL (74-100); POTASSIUM,K 4.5 mmol/L (3.5-5.1); PROTEIN TOTAL,TP 6.1 g/dL (6.4-8.2); SODIUM,NA 133.0 mmol/L (136-145)
[2025-01-12 08:47] LABS: A/G RATIO 0.7 (0.8-2.0)
[2025-01-13 08:16] LABS: MEAN PLATELET VOLUME 9.5 fL (6.0-10.0); PLATELET COUNT,PLT 198.0 K/uL (150-400); RED BLOOD CELL COUNT 4.16 M/uL (4.50-6.50); RED CELL DISTRIBUTION WIDTH 13.5 % (11.0-16.0); WHITE BLOOD CELL COUNT,WBC 6.4 K/uL (4.0-11.0)
[2025-01-13 08:43] LABS: BLOOD UREA NITROGEN,BUN 12.0 mg/dL (8-26); CARBON DIOXIDE,CO2 21.9 mmol/L (21.0-32.0); CHLORIDE,CL 106.0 mmol/L (98-107); CREATININE 1.15 mg/dL (0.70-1.30); EST CRCL DRUG DOSING (CG) 48.49 mL/min; ESTIMATED GFR 62.0 mL/min (>60); GLUCOSE RANDOM 115.0 mg/dL (74-100); POTASSIUM,K 4.4 mmol/L (3.5-5.1); SODIUM,NA 137.0 mmol/L (136-145)
[2025-01-14 07:57] LABS: MEAN PLATELET VOLUME 9.4 fL (6.0-10.0); PLATELET COUNT,PLT 217.0 K/uL (150-400); RED BLOOD CELL COUNT 3.9 M/uL (4.50-6.50); RED CELL DISTRIBUTION WIDTH 13.4 % (11.0-16.0); WHITE BLOOD CELL COUNT,WBC 7.2 K/uL (4.0-11.0)
[2025-01-14 08:33] LABS: A/G RATIO 0.6 (0.8-2.0); ALANINE AMINOTRANSFERASE,ALT 16.0 U/L (12-78); ASPARTATE AMNIOTRANSFERASE,AST 11.0 U/L (15-37); BILIRUBIN TOTAL 0.5 mg/dL (0.0-1.0); BLOOD UREA NITROGEN,BUN 10.0 mg/dL (8-26); CARBON DIOXIDE,CO2 19.1 mmol/L (21.0-32.0); CHLORIDE,CL 105.0 mmol/L (98-107); CREATININE 1.15 mg/dL (0.70-1.30); EST CRCL DRUG DOSING (CG) 48.49 mL/min; ESTIMATED GFR 62.0 mL/min (>60); GLUCOSE RANDOM 88.0 mg/dL (74-100); POTASSIUM,K 4.1 mmol/L (3.5-5.1); PRO B-TYPE NATRIUR PEPT,BNPPRO 318.0 pg/mL (0-450); PROTEIN TOTAL,TP 5.9 g/dL (6.4-8.2); SODIUM,NA 138.0 mmol/L (136-145)
[2025-01-14 09:03] LABS: SEDIMENTATION RATE MANUAL 65.0 mm/hr (0-20)
[2025-01-14] MEDS: Dextrose 5%-0.9% NaCl with KCl 1,000 ML IV SCH (12:19)
[2025-01-15 09:01] LABS: MEAN PLATELET VOLUME 9.3 fL (6.0-10.0); PLATELET COUNT,PLT 235.0 K/uL (150-400); RED BLOOD CELL COUNT 3.89 M/uL (4.50-6.50); RED CELL DISTRIBUTION WIDTH 13.3 % (11.0-16.0); WHITE BLOOD CELL COUNT,WBC 8.5 K/uL (4.0-11.0)
[2025-01-15 09:09] LABS: BLOOD UREA NITROGEN,BUN 6.0 mg/dL (8-26); CARBON DIOXIDE,CO2 23.7 mmol/L (21.0-32.0); CHLORIDE,CL 107.0 mmol/L (98-107); CREATININE 1.2 mg/dL (0.70-1.30); EST CRCL DRUG DOSING (CG) 46.47 mL/min; ESTIMATED GFR 59.0 mL/min (>60); GLUCOSE RANDOM 151.0 mg/dL (74-100); POTASSIUM,K 4.2 mmol/L (3.5-5.1); SODIUM,NA 138.0 mmol/L (136-145)
[2025-01-15] MEDS: Lactobacillus Acidophilus/Lactobacillus Sporogenes (Probiotic) Tab PO SCH (10:21)
[2025-01-16 08:25] LABS: MEAN PLATELET VOLUME 8.9 fL (6.0-10.0); PLATELET COUNT,PLT 267.0 K/uL (150-400); RED BLOOD CELL COUNT 4.05 M/uL (4.50-6.50); RED CELL DISTRIBUTION WIDTH 13.4 % (11.0-16.0); WHITE BLOOD CELL COUNT,WBC 9.0 K/uL (4.0-11.0)
[2025-01-16 08:35] LABS: BLOOD UREA NITROGEN,BUN 3.0 mg/dL (8-26); CARBON DIOXIDE,CO2 23.6 mmol/L (21.0-32.0); CHLORIDE,CL 107.0 mmol/L (98-107); CREATININE 1.16 mg/dL (0.70-1.30); EST CRCL DRUG DOSING (CG) 48.07 mL/min; ESTIMATED GFR 62.0 mL/min (>60); GLUCOSE RANDOM 138.0 mg/dL (74-100); POTASSIUM,K 4.0 mmol/L (3.5-5.1); SODIUM,NA 140.0 mmol/L (136-145)
[2025-01-17 07:54] LABS: MEAN PLATELET VOLUME 9.3 fL (6.0-10.0); PLATELET COUNT,PLT 258.0 K/uL (150-400); RED BLOOD CELL COUNT 3.66 M/uL (4.50-6.50); RED CELL DISTRIBUTION WIDTH 13.6 % (11.0-16.0); WHITE BLOOD CELL COUNT,WBC 7.8 K/uL (4.0-11.0)
[2025-01-17 08:28] LABS: BLOOD UREA NITROGEN,BUN 3.0 mg/dL (8-26); CARBON DIOXIDE,CO2 23.1 mmol/L (21.0-32.0); CHLORIDE,CL 106.0 mmol/L (98-107); CREATININE 1.09 mg/dL (0.70-1.30); EST CRCL DRUG DOSING (CG) 51.16 mL/min; ESTIMATED GFR 67.0 mL/min (>60); GLUCOSE RANDOM 104.0 mg/dL (74-100); POTASSIUM,K 3.8 mmol/L (3.5-5.1); SODIUM,NA 139.0 mmol/L (136-145)
[2025-01-17 08:59] LABS: SEDIMENTATION RATE MANUAL 72.0 mm/hr (0-20)
[2025-01-17] MEDS ORDERED: Sodium Chloride 0.9% 10 ML Syringe FLUSH PRN (09:37)
[2025-01-17] MEDS: Iopamidol 612 MG/ML 100 ML Bottle IV SCH (10:10)
[2025-01-17] MEDS: VANCOmycin 1.5 GM/300 ML 1.5 GM in Premix Bag 1 BAG IV ONE (12:49)
[2025-01-17] MEDS: metroNIDAZOLE/Normal Saline 500 MG in Premix Bag 1 BAG IV ONE (12:57)
== END 2025-01-17 19:25 | DRG 378 ==
LOC: LB.ED 12:49 → LB.MS 15:49 → UNDOADMIN 16:15 → LB.MS 16:15
PROVIDERS: ADMIT Surgery; ATTEND Surgery
DX: K57.20 Diverticulitis of large intestine with perforation and abscess without bleeding (principal); Z88.1 Allergy status to other antibiotic agents; Z88.2 Allergy status to sulfonamides; K57.81 Diverticulitis of intestine, part unspecified, with perforation and abscess with bleeding; N17.9 Acute kidney failure, unspecified; N40.1 Benign prostatic hyperplasia with lower urinary tract symptoms; E78.5 Hyperlipidemia, unspecified; I10 Essential (primary) hypertension; Z96.619 Presence of unspecified artificial shoulder joint; I25.2 Old myocardial infarction; Z86.718 Personal history of other venous thrombosis and embolism; Z85.46 Personal history of malignant neoplasm of prostate; Z98.890 Other specified postprocedural states; Z86.711 Personal history of pulmonary embolism; Z95.0 Presence of cardiac pacemaker; Z88.8 Allergy status to other drugs, medicaments and biological substances
CPT/HCPCS: 36415; 74176; 80053; 81003; 83690; 85025; 99285; J2543; 74177; 80048; 83605; 83735; 83880; 84145; 85027; 85651; 86140; 87040; 87493; 99223; 99231; 99232; 99239; A0425; A0428; A9270-GY; J1836; J3480; J7030; Q9967